=== PATIENT | female | born 1940 | race Hispanic/Latino ===

== ENCOUNTER 2020-09-27 11:32 | Outpatient (CLI) | payer MEDICARE ==
--- NOTE | 2020-10-04 16:57 | XRay Report ---
CHEST 2 VIEWS INDICATION / CLINICAL INFORMATION: SCREENING FOR TUBERCULOSIS. FINDINGS: SUPPORT DEVICES: None. HEART / MEDIASTINUM: No significant abnormality. LUNGS / PLEURA: No significant pulmonary or pleural abnormality. No pneumothorax. ADDITIONAL FINDINGS: No significant additional findings. IMPRESSION: 1. No acute findings. Signer Name: Zelalem Welch MD Signed: 09/27/2020 3:54 PM Workstation Name: [id number]
== END 2020-09-27 11:33 | disposition home or self-care (01) ==
LOC: SPVIMAG 11:32
PROVIDERS: ATTEND Internal Medicine Hematology & Oncology
DX: Z11.1 Encounter for screening for respiratory tuberculosis (principal)
CPT/HCPCS: 71046